=== PATIENT | female | born 1975 | race Caucasian/White ===

== ENCOUNTER → 2022-01-19 10:39 | Outpatient (CLI) | payer SELFPAY ==
--- NOTE | ~2022-01-19 | MM_ITS ---
EXAMINATION: MM screening [facility] BI w chad HISTORY: Screening TECHNIQUE: Craniocaudal and mediolateral oblique 3-D tomosynthesis images were obtained and synthetic 2-D images were generated. CAD analysis was submitted and interpreted. COMPARISON: Comparison to multiple prior studies sequentially, with oldest reviewed study dated 08/2015. BREAST PARENCHYMAL COMPOSITION: There are scattered areas of fibroglandular density. FINDINGS: There is no evidence of suspicious mass, calcification, or architectural distortion to sugg est malignancy in either breast. There has been no suspicious interval change. IMPRESSION: 1. No mammographic evidence of malignancy. 2. Recommend routine screening mammography in one year. BI-RADS Category 1: Negative Reviewed, dictated and finalized at location A.
== END ==
PROVIDERS: PCP Internal Medicine; Visit Provider Student in an Organized Health Care Education/Training Program
DX: Z12.31 Encounter for screening mammogram for malignant neoplasm of breast (principal)
CPT/HCPCS: 77063; 77067

== ENCOUNTER 2022-05-23 17:12 | Emergency (ER) | payer SELFPAY ==
--- NOTE | 2022-05-23 17:14 | ED.HA ---
HPI - Headache General Chief Complaint: Upper Respiratory Infection Stated Complaint: headache Time Seen by Provider: 05/23/22 17:14 Source: patient Mode of arrival: ambulatory Limitations: no limitations History of Present Illness HPI Narrative: Elyse is a 46-year-old female patient presenting to clinic today with complaints of headache, body aches, chills, and fatigue. She reports symptoms have been going on for few days but worse today. States she was on her way to work and felt as though she was too sick to go in to work so she called off went home. She denies any known fever. Blood pressure is elevated in the clinic today. Does have history of high blood pressure in the past however she is not medicated at this time. Related Data Home Medications Medication Instructions Recorded Confirmed cetirizine 10 mg tablet (24Hour 10 mg PO DAILY PRN 08/12/20 08/12/21 Allergy) cholecalciferol (vitamin D3) 25 25 mcg PO DAILY 08/12/21 08/12/21 mcg (1,000 unit) capsule citalopram 20 mg tablet 20 mg PO DAILY 08/12/21 08/12/21 melatonin 1 mg tablet 1 mg PO QHS 08/12/21 08/12/21 progesterone micronized 200 mg 400 mg PO QHS 08/12/21 08/12/21 capsule testosterone 1 % (25 mg/2.5 gram) 1 packet transdermal DAILY 08/12/21 08/12/21 transdermal gel packet thyroid grain BYMOUTH 08/12/21 08/12/21 Allergies Allergy/AdvReac Type Severity Reaction Status Date / Time minocycline Allergy Intermediate Dizziness Verified 05/23/22 17:36 codeine Allergy Unknown N/V Verified 05/23/22 17:36 Sulfa (Sulfonamide Allergy Hives Verified 05/23/22 17:36 Antibiotics) Review of Systems Review of Systems: Pertinent positives per HPI. Patient denies any fever, chills, rash, visual changes, dizziness, cough, shortness of breath, chest pain, palpitations, nausea, vomiting, diarrhea, constipation, abdominal pain, or any urinary issues. [facility] Past Medical History Medical History Anxiety History of HPV infection Hypertension Thrombosis Thyroid disorder Surgical History Surgical History History of appendectomy History of endometrial ablation History of hand surgery History of hysterectomy Previous section Family History Family History Father Hypertension Lymphoma Mother Diabetes mellitus Hypertension Depression Heart disease Cerebrovascular accident Thyroid disorder Paget's disease Social History Social History Smoking status: Former smoker Alcohol intake: never Substance use: never Living arrangements: with family Gender identity (if verbalized by the patient): Female Agree to blood products: Yes Comments At the time of my signature, I reviewed and agree with the nursing past medical, surgical, social, and family history. There is no relevant family history pertinent to the patient complaint. Exam Narrative: General: Well-developed, well nourished, in no apparent distress Head: Normocephalic, atraumatic Eyes: Pupils equally round and reactive to light bilaterally, EOM intact, sclera and conjunctive clear, no discharge, lids normal Ears: TMs intact and dull, ear canals clear, no drainage, grossly hearing normal. Nose: Nares patent, clear nasal discharge, mild inflammation, no sinus tenderness. Mouth: Oral pharynx without lesions or masses, good dentition, MMM. Post nasal drip Neck: Supple, trachea midline, no enlargement of anterior or posterior cervical nodes, no thyroid masses or goiter palpable. Cardio: Regular rate and rhythm, s1 and s2 normal, no murmur appreciated. Resp: Clear to auscultation bilaterally, no rhonchi, rales, wheezing or rubs Course Course Emergency Course: Portions of this record may have been created with voice
[2022-05-23 17:40] VITALS: BP 178/71; PULSE 117; RESP 18; TEMP 37.5
== END 2022-05-23 18:06 | disposition home or self-care (01) ==
PROVIDERS: Emergency Provider Nurse Practitioner Family; PCP Internal Medicine
DX: J06.9 Acute upper respiratory infection, unspecified (principal); B34.9 Viral infection, unspecified; G44.89 Other headache syndrome; I10 Essential (primary) hypertension; Z20.822 Contact with and (suspected) exposure to COVID-19; Z87.891 Personal history of nicotine dependence; F41.9 Anxiety disorder, unspecified
CPT/HCPCS: 87081; 87426; 87804; 87880; 99213; C9803; G0463

== ENCOUNTER 2023-11-02 10:54 | Outpatient (CLI) | payer SELFPAY ==
--- NOTE | ~2023-11-02 | MM_ITS ---
EXAMINATION: MM screening [facility] BI w chad HISTORY: Screening TECHNIQUE: Craniocaudal and mediolateral oblique 3-D tomosynthesis images were obtained and synthetic 2-D images were generated. CAD analysis was submitted and interpreted. COMPARISON: Comparison to multiple prior studies sequentially, with oldest reviewed study dated 2015. BREAST PARENCHYMAL COMPOSITION: Not dense: There are scattered areas of fibroglandular density. FINDINGS: There is no evidence of suspicious mass, calcification, or architectural distortion to sugg est malignancy in either breast. There has been no suspicious interval change. IMPRESSION: 1. No mammographic evidence of malignancy. 2. Recommend routine screening mammography in one year. BI-RADS Category 1: Negative Reviewed, dictated and finalized at location B.
== END 2023-11-02 10:55 ==
PROVIDERS: PCP Registered Nurse; Visit Provider Registered Nurse
DX: Z12.31 Encounter for screening mammogram for malignant neoplasm of breast (principal)
CPT/HCPCS: 77063; 77067